=== PATIENT | female | born 1975 | race Asian ===

== ENCOUNTER 2019-02-11 18:06 | Emergency (ER) | payer OTHER ==
[~2019-02-11] VITALS: Ht 167.6 cm; Wt 61.4 kg
[2019-02-11 18:46] VITALS: Ht 167.6 cm; Wt 61.4 kg
[2019-02-11 19:52] VITALS: BP 109/72
== END 2019-02-11 19:52 | disposition home or self-care (01) ==
LOC: ED 18:06
DX: N30.90 Cystitis, unspecified without hematuria (principal); Z88.0 Allergy status to penicillin